=== PATIENT | male | born 1965 | race Caucasian/White ===

== ENCOUNTER 2017-03-25 10:49 | Inpatient (IN) | payer OTHER ==
[~2017-03-25] VITALS: Ht 157.5 cm; Wt 120.7 kg
[2017-03-25 10:54] VITALS: Ht 157.5 cm; Wt 120.7 kg
[2017-03-25] MEDS ORDERED: ONDANSETRON 4 MG INJ IV STA ×2 (11:39→14:12)
[2017-03-25] MEDS ORDERED: HYDROmorphONE 1 MG/ML SYG IV STA ×2 (11:39→14:12)
[2017-03-25 11:55] LABS: BASOPHIL # 0.1 10^3/ul (0.0-0.1); BASOPHILS % 0.8 % (0.0-2.0); EOSINOPHILS # 0.3 10^3/ul (0.0-0.5); EOSINOPHILS % 4.5 % (0.0-7.0); HEMATOCRIT 47.5 % (42.0-52.0); HEMOGLOBIN 16.3 g/dl (14.0-18.0); LYMPHOCYTES # 0.8 10^3/ul (0.8-2.9); LYMPHOCYTES % 13.2 % (15.0-51.0); MEAN CORPUSCULAR HEMOGLOBIN 29.8 pg (29.0-33.0); MEAN CORPUSCULAR HGB CONC 34.3 g/dl (32.0-37.0); MEAN CORPUSCULAR VOLUME 86.8 fl (82.0-101.0); MONOCYTE # 0.6 10^3/ul (0.3-0.9); MONOCYTES % 9.4 % (0.0-11.0); NEUTROPHIL # 4.3 10^3/ul (1.6-7.5); NEUTROPHILS % 71.8 % (39.0-77.0); PLATELET COUNT 275 10^3/UL (140-415); RED BLOOD COUNT 5.47 10^6/ul (4.70-6.10); RED CELL DISTRIBUTION WIDTH 12.6 % (11.5-14.5)
[2017-03-25] MEDS ORDERED: ERTAPENEM SODIUM 1 GM in SOD CHLORIDE 0.9% 100 ML IVPB ONE (12:00)
[2017-03-25 12:19] LABS: ALBUMIN 4.5 g/dl (3.3-4.9); ALBUMIN/GLOBULIN RATIO 1.12; BILIRUBIN,INDIRECT 0.2 mg/dl (0-1.1); BILIRUBIN,TOTAL 0.2 mg/dl (0.2-1.3); CALCIUM 9.4 mg/dl (8.4-10.2); CREATININE 0.83 mg/dl (0.61-1.24); POTASSIUM 3.9 mmol/L (3.5-5.1); TOTAL PROTEIN 8.5 g/dl (6.1-8.1)
[2017-03-25] MEDS ORDERED: IOHEXOL 300MG/ML 150 ML BTL ONE (13:21)
[2017-03-25] MEDS ORDERED: SOD CHLORIDE 0.9% 100 ML ONE (13:21)
--- NOTE | 2017-03-25 13:24 | ERA ---
ER Documentation Chief Complaint Date/Time DATE: 03/25/17 TIME: 13:22 Chief Complaint right abcess/ mass? x 3 mos HPI This a 51-year-old diabetic who states he has had a right past 3 months. He says started out like the size of a dime but is progressively gotten worse. She is now has an open circular wound in his right buttocks is getting more swollen and painful. Denies any fever vomiting difficulty having a bowel movement no shortness of breath vomiting GI symptoms. ROS All systems reviewed and are negative except as per history of present illness. Medications Home Meds No Active Prescriptions or Reported Meds Allergies Allergies: Coded Allergies: No Known Allergy (Unverified , 03/25/17) PMhx/Soc Medical and Surgical Hx: pt denies Medical Hx, pt denies Surgical Hx Hx Alcohol Use: No Hx Substance Use: No Hx Tobacco Use: No Smoking Status: Never smoker FmHx Family History: No coronary disease Physical Exam Vitals Vital Signs Date Time Temp Pulse Resp B/P Pulse Ox O2 Delivery O2 Flow Rate FiO2 03/25/17 10:54 98.3 99 18 203/117 99 Physical Exam Const: Well-developed, well-nourished Head: Atraumatic, normocephalic Eyes: Normal Conjunctiva, PERRLA, EOMI, normal sclera, no nystagmus ENT: Normal External Ears, Nose and Mouth, moist mucus membranes. Neck: Full range of motion. No meningismus, no lymphadenopathy. Resp: Clear to auscultation bilaterally, no wheezing, rhonchi, rales Cardio: Regular rate and rhythm, no murmurs, S1 S2 present Abd: Soft, non tender x 4, non distended. Normal bowel sounds, no guarding or rebound, no pulsitile abdominal masses or bruits Skin: No petechiae or rashes, no ecchymosis , no maculopapular rash, the right buttocks has a granulated tissue circular appearing woman with a central area of necrosis approximately 5-6 cm in diameter. Surrounding tissue is very firm and hard in the buttocks. Back: No midline or flank tenderness Ext: No cyanosis, or edema, FROM x 4, normal inspection, neurovascularly intact x 4 Neur: Awake and alert, STR 5/5 x 4, sensation intact x 4, no focal findings, cerebellum intact Psych: Normal Mood and Affect Result Diagram: 03/25/17 1140 03/25/17 1140 Results 24 hrs Laboratory Tests Test 03/25/17 11:40 White Blood Count 6.010^3/ul Red Blood Count 5.4710^6/ul Hemoglobin 16.3g/dl Hematocrit 47.5% Mean Corpuscular Volume 86.8fl Mean Corpuscular Hemoglobin 29.8pg Mean Corpuscular Hemoglobin Concent 34.3g/dl Red Cell Distribution Width 12.6% Platelet Count 35310^3/UL Mean Platelet Volume 9.0fl Neutrophils % 71.8% Lymphocytes % 13.2% Monocytes % 9.4% Eosinophils % 4.5% Basophils % 0.8% Nucleated Red Blood Cells % 0.0/100WBC Neutrophils # 4.310^3/ul Lymphocytes # 0.810^3/ul Monocytes # 0.610^3/ul Eosinophils # 0.310^3/ul Basophils # 0.110^3/ul Nucleated Red Blood Cells # 0.010^3/ul Sodium Level 141mmol/L Potassium Level 3.9mmol/L Chloride Level 106mmol/L Carbon Dioxide Level 24mmol/L Anion Gap 15 Blood Urea Nitrogen 12mg/dl Creatinine 0.83mg/dl Glucose Level 179mg/dl Calcium Level 9.4mg/dl Total Bilirubin 0.2mg/dl Direct Bilirubin 0.00mg/dl Indirect Bilirubin 0.2mg/dl Aspartate Amino Transf (AST/SGOT) 32IU/L Alanine Aminotransferase (ALT/SGPT) 51IU/L Alkaline Phosphatase 140IU/L Total Protein 8.5g/dl Albumin 4.5g/dl Globulin 4.00g/dl Albumin/Globulin Ratio 1.12 Current Medications Medications (Trade) Dose Ordered Sig/Amol Route PRN Reason Start Time Stop Time Status Last Admin Dose Admin Hydromorphone HCl (Dilaudid) 1 mg ONCE STAT IV 03/25/17 11:39 03/25/17 11:42 DC 03/25/17 12:09 Ondansetron HCl 4 mg 4 mg ONCE STAT IV 03/25/17 11:39 03/25/17 11:42 DC 03/25/17 12:09 Ertapenem/Sodium Chloride (Invanz/NS) 100 ml @ 200 mls/hr ONCE ONCE IVPB 03/25/17 12:00 03/25/17 12:29 DC 03/25/17 12:09 Iohexol 150 ml 150 ml STK-MED ONCE .ROUTE 03/25/17 13:21 03/25/17 13:22 DC 03/25/17 13:44 Sodium Chloride (NS) 100 ml @ ud STK-MED ONCE .ROUTE 03/25/17 13:21 03/25/17 13:22 DC 03/25/17 13:44 Hydromorphone HCl (Dilaudid) 1 mg ONCE STAT IV 03/25/17 14:12 03/25/17 14:13 DC Ondansetron HCl (Zofran Inj) 4 mg ONCE STAT IV 03/25/17 14:12 03/25/17 14:13 DC Procedures/[facility] Patient will be admitted for IV antibiotics and wound care. CT scan of the buttocks is currently pending, he received some IV fluids and 1 g of Invanz in the emergency department. PROCEDURE: CT pelvis with contrast. CLINICAL INDICATION: Left buttock abscess TECHNIQUE: CT scan of the pelvis after 90 cc of Omnipaque-300 IV contrast was performed. The patient was scanned without intravenous contrast. Coronal and sagittal reformatted images were obtained from the axial source images. Use of iterative reconstruction technique was employed. Images were reviewed on a high- resolution PACS workstation. images. The calculated radiation dose measures 685.86 mGy centimeters. The CTDI measures 16.72 mGy. One or more of the following dose reduction techniques were used: - Automated exposure control. - Adjustment of the mA and/or kV according to patient size . - Use of iterative reconstruction technique. Images were reviewed on a high-resolution PACS workstation COMPARISON: None. FINDINGS: CT pelvis: Osseous structures: There is no acute osseous abnormality or evidence of fracture. No cortical destruction or soft tissue gas is seen to suggest osteomyelitis. The hip joints and lower lumbar spine are grossly maintained. Mild to moderate symphysis pubis degeneration. Soft tissues: The small bowel loops situated within the pelvis are unremarkable. The pelvic organs are normal. The pelvic sidewalls and inguinal regions are clear. The sigmoid colon and rectum are remarkable for sigmoid diverticulosis. No mass, lymphadenopathy, or free fluid is seen. No acute inflammation is seen. Mild nonspecific increased attenuation is seen at the left gluteus arianna muscle without evidence of a drainable fluid collection. IMPRESSION: 1. No CT evidence of a drainable fluid collection. 2. No acute osseous abnormality or findings to suggest osteomyelitis. RPTAT: HH .Keven Perez MD, MD Date Time Electronically viewed and signed by .Keven Perez MD, MD on 03/25/2017 13:50 .d/ CC: MIESHA ARREAGA DO There is no drainable fluid collection or need for surgical intervention at this time. Patient needs IV antibiotics and wound care at this time Departure Diagnosis: Primary Impression: Soft tissue infection Additional Impression: Open wound Condition: Stable MIESHA ARREAGA DO Mar 25, 2017 13:24
--- NOTE | 2017-03-25 13:51 | RADRPT ---
PROCEDURE: CT pelvis with contrast. CLINICAL INDICATION: Left buttock abscess TECHNIQUE: CT scan of the pelvis after 90 cc of Omnipaque-300 IV contrast was performed. The paulette ent was scanned without intravenous contrast. Coronal and sagittal reformatted images were obtained from the axial source images. Use of iterative reconstruction technique was employed. Images were r eviewed on a high-resolution PACS workstation. images. The calculated radiation dose measures 685.86 mGy centimeters. The CTDI measures 16.72 mGy. One or more of the following dose reduction techniques were used: - Automated exposure control. - Adjustment of the mA and/or kV according to patient size . - Use of iterative reconstruction technique. Images were reviewed on a high-resolution PACS workstation COMPARISON: None. FINDINGS: CT pelvis: Osseous structures: There is no acute osseous abnormality or evidence of fracture. No cortical destruction or soft tissu e gas is seen to suggest osteomyelitis. The hip joints and lower lumbar spine are grossly maintained . Mild to moderate symphysis pubis degeneration. Soft tissues: The small bowel loops situated within the pelvis are unremarkable. The pelvic organs are normal. T he pelvic sidewalls and inguinal regions are clear. The sigmoid colon and rectum are remarkable for sigmoid diverticulosis. No mass, lymphadenopathy, or free fluid is seen. No acute inflammation is seen. Mild nonspecific increased attenuation is seen at the left gluteus arianna muscle without ev idence of a drainable fluid collection. IMPRESSION: 1. No CT evidence of a drainable fluid collection. 2. No acute osseous abnormality or findings to suggest osteomyelitis. RPTAT: HH .Keven Perez MD, MD Date Time Electronically viewed and signed by .Keven Perez MD, MD on 03/25/2017 13:50 .d/
[2017-03-25] MEDS ORDERED: ACETAMINOPHEN 325 MG TAB PO PRN ×2 (15:30→17:30)
[2017-03-25] MEDS ORDERED: ONDANSETRON 4 MG INJ IV PRN ×2 (15:30→17:30)
--- NOTE | 2017-03-25 17:29 | QN ---
Documentation Comment [id number] KAL HENDRIX MD Mar 25, 2017 17:29
[2017-03-25] MEDS ORDERED: MAGNESIUM HYDROXIDE 30ML CUP PO PRN (17:30)
[2017-03-25] MEDS ORDERED: DOCUSATE SODIUM 100 MG CAP PO PRN (17:30)
[2017-03-25] MEDS ORDERED: VANCOMYCIN IV PER PHARMACY XX SCH (17:30)
[2017-03-25] MEDS ORDERED: NACL 0.9% 3 ML SYG IV SCH (17:30)
[2017-03-25] MEDS ORDERED: BISACODYL (EC) 5 MG TAB PO PRN (17:30)
[2017-03-25 17:58] VITALS: TEMP 98.5
[2017-03-25] MEDS ORDERED: hydrALAzine 20 MG INJ IV PRN (18:00)
[2017-03-25] MEDS ORDERED: VANCOMYCIN 1.75 GM in SOD CHLORIDE 0.9% 500 ML IVPB ONE (18:30)
[2017-03-25] MEDS: HYDROCODONE/APAP (5/325) TAB PO PRN ×2 (18:41→20:08)
[2017-03-25] MEDS: SOD CHLORIDE 0.9% 1,000 ML IV SCH (20:07)
[2017-03-25 21:30] VITALS: BP 137/84; RESP 19
[2017-03-25 22:36] VITALS: BP 132/90; PULSE 89; RESP 19
[2017-03-26 02:19] VITALS: BP 132/73; RESP 18
[2017-03-26] MEDS: HYDROCODONE/APAP (5/325) TAB PO PRN ×2 (02:39→09:13)
--- NOTE | 2017-03-26 02:46 | HP ---
DATE OF ADMISSION: 03/25/2017 HISTORY OF PRESENT ILLNESS: Mark Mckeon is a 51-year-old male who has a history of diabetes, but he denies any diabetes, hypertension. Patient presents with buttock wound, chronic, not healing. 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 The patient also has been gaining weight. Patient's laboratory , sodium 141, potassium 3.9. Patient had pelvic CT scan, shows no CT evidence of a drainable fluid collection, no acute osseous abnormality or finding to suggest osteomyelitis. The patient presented with above findings. PAST MEDICAL HISTORY: Questionable diabetes. ALLERGY HISTORY: HE DENIES. FAMILY HISTORY: Denies. SOCIAL HISTORY: He denies. MEDICATION HISTORY: No medicine at home. REVIEW OF SYSTEMS: HEENT: Unremarkable. RESPIRATORY: Unremarkable. CARDIOVASCULAR: Unremarkable. ABDOMEN: Unremarkable. EXTREMITIES: Unremarkable. GENITOURINARY: Unremarkable. MUSCULOSKELETAL: Unremarkable. SKIN: As mentioned above. PHYSICAL EXAMINATION: GENERAL: Obese, overweight male, awake, alert. VITALS: Stable. HEAD: Atraumatic, normocephalic. Pupils equal, reactive to light. NECK: Supple, there is no JVD. LUNGS: Clear. CARDIOVASCULAR: S1, S2 normal. ABDOMEN: Soft, nontender. Bowel sounds present. No palpable mass or hepatosplenomegaly. EXTREMITIES: There is no cyanosis, clubbing or edema. CENTRAL NERVOUS SYSTEM: The patient is awake, alert, no focal deficits. SKIN: The patient has had buttock cheek right swollen, tender, red, dry, no discharge noted. LABORATORY DATA: As mentioned above. IMPRESSION: 1. The patient has buttock wound. 2. Hypertension, uncontrolled. 3. Obesity. PLAN: Obtain hemoglobin A1c. IV fluid, antibiotic, wound care. Hemoglobin A1c will be checked. Antibiotics will be given, as well as orders were done. Dictated By: KAL BAUGH/BRIAN Conf#: [id number] DID#: [id number] MTDD
[2017-03-26] MEDS ORDERED: PENDING SANTYL ORDER FOR WOUND CARE XX PRN (04:00)
[2017-03-26] MEDS: PANTOPRAZOLE (EC) 40 MG TAB PO SCH (05:39)
[2017-03-26] MEDS ORDERED: VANCOMYCIN 1 GM in NS 250 ML IVPB SCH (06:30)
[2017-03-26 07:46] VITALS: BP 140/82; RESP 16
[2017-03-26] MEDS: ENOXAPARIN 40 MG/0.4 ML SYG SC SCH (09:19)
[2017-03-26] MEDS: CEFTRIAXONE 1 GM/50 ML (PMX) 50 ML IVPB SCH (11:06)
[2017-03-26] MEDS: morphine 2 MG INJ IV PRN (13:10)
[2017-03-26 14:11] VITALS: BP 132/72; RESP 20
--- NOTE | 2017-03-26 14:19 | CONS ---
Date/Time of Note Date/Time of Note DATE: 03/26/17 TIME: 13:51 Assessment/Plan Assessment/Plan Chief Complaint/Hosp Course 1. Nonhealing right buttock wound with necrotic tissue: complicated by diabetes : CT without fluid collection -debridement -local wound care -wound culture 2. Diabetes: HgA1c: 6.7 -blood sugar optimization -medication and diet optimization -weight management 3. Morbid obesity -diet and exercise optimization 4. Hypertension -medical optimization Thank you. Patient seen and examined in collaboration with Dr. Alexx Shea. Problems: Consultation Date/Type/Reason Admit Date/Time Mar 25, 2017 at 15:47 Date of Consultation: Mar 26, 2017 Type of Consultation: Surgical Reason for Consultation wound Referring Provider: KAL HENDRIX Hx of Present Illness Makr Mckeon is a 51 yo man who presents to [facility] with c/o a nonhealing wound on his right buttock. The wound reportedly began 3 months ago after using a public bathroom, he scratched his buttock which resulted in a wound. The wound has min creamy drainage. He denies fevers, chills, excessive wound drainage/odor , myalgias, change in bowel function or ability to defecate. Therapies attempted include over-the counter ointments as well as ointment obtained by a family member from the hospital where she works. Despite these, his wound has gotten worse. General surgery was asked to evaluate. Constitutional: No chills, No febrile Eyes: No discharge, No visual change ENT: No congestion, No pain Respiratory: No cough, No pain, No shortness of breath Cardiovascular: No chest pain, No edema Gastrointestinal: passing stool, No blood, No constipation, No nausea, No pain Genitourinary: No dysuria Skin: other (as above), No bruising, No erythema Neurologic: No confusion, No focal-weakness Endocrine: No polydypsia Psychological: nl mood/affect Past Medical History hypertension diabetes (unknown to patient) morbid obesity Past Surgical History no surgical history Family History Significant Family History: no pertinent family hx Social History Alcohol Use: occasionally Smoking Status: Never smoker Drug Use: none Exam/Review of Systems Vital Signs Vitals Vital Signs Date Time Temp Pulse Resp B/P Pulse Ox O2 Delivery O2 Flow Rate FiO2 03/26/17 07:46 97.9 86 16 140/82 98 03/25/17 22:36 Room Air Intake and Output 03/25/17 03/25/17 03/26/17 15:00 23:00 07:00 Intake Total 950 ml Balance 950 ml Exam Constitutional: alert, oriented Psych: nl mood/affect, no complaints Head: atraumatic, normocephalic Eyes: nl conjunctiva, nl lids, nl sclera ENMT: mucosa pink and moist, nl nasal mucosa & septum Neck: non-tender, supple Respiratory: clear to auscultation, normal air movement Cardiovascular: nl pulses, regular rate and rhythm Gastrointestinal: bowel sounds, non-tender, soft Musculoskeletal: nl extremities to inspection, nl gait and stance Extremities: normal pulses Neurological: nl mental status, nl speech, nl strength Skin: other (Right buttock: open wound with necrotic tissue, debris min drainage, nonmalodorous) Results Result Diagram: 03/25/17 1140 03/25/17 1140 Medications Medications Current Medications Sodium Chloride (NS) 1,000 ml @ 40 mls/hr Q24H IV Last administered on 20:07; Admin Dose 40 MLS/HR; Start 03/25/17 at 17:07 Ondansetron HCl (Zofran Inj) 4 mg Q6H PRN IV NAUSEA AND/OR VOMITING; Start 04/01 at 17:30 Acetaminophen (Tylenol Tab) 650 mg Q6H PRN PO PAIN LEVEL 1-3 OR FEVER; Start 03/25/17 at 17:30 Acetaminophen/ Hydrocodone Bitart ([place] (5/325)) 1 tab Q6H PRN PO MODERATE PAIN LEVEL 4-6 Last administered on 03/26/17 09:13; Admin Dose 1 TAB; Start 03/25/17 at 17:30 Docusate Sodium (Colace) 100 mg Q12H PRN PO CONSTIPATION; Start 03/25/17 at 17 :30 Magnesium Hydroxide (Milk Of Mag) 30 ml DAILY PRN PO CONSTIPATION; Start 03/25 at 17:30 Bisacodyl (Dulcolax) 5 mg DAILY PRN PO CONSTIPATION; Start 03/25/17 at 17:30 Pantoprazole (Protonix Tab) 40 mg DAILY@06 PO Last administered on 03/26/17 05:39; Admin Dose 40 MG; Start 03/26/17 at 06:00 Enoxaparin Sodium 40 mg 40 mg DAILY SC Last administered on 03/26/17 09:19; Admin Dose 40 MG; Start 03/26/17 at 09:00 Ceftriaxone Sodium (Rocephin) 50 ml @ 100 mls/hr DAILY IVPB Last administered on 03/26/17 11:06; Admin Dose 100 MLS/HR; Start 03/26/17 at 09:00 Clonidine (Catapres) 0.1 mg TID PO Last administered on 03/26/17 13:11; Admin Dose 0.1 MG; Start 03/25/17 at 21:00 Hydralazine HCl 10 mg 10 mg Q6H PRN IV SBP ABOVE 170; Start 03/25/17 at 18:00 Vancomycin HCl (Vancocin) 250 ml @ 125 mls/hr Q12H IVPB Last administered on 03/26/17 07:53; Admin Dose 125 MLS/HR; Start 03/26/17 at 06:30 Miscellaneous Information (Pending [facility] Order For Wound Care) This patient lópez... PRN PRN XX WOUND CARE; Start 03/26/17 at 04:00 Morphine Sulfate (morphine) 2 mg Q4H PRN IV pain Last administered on 13:10; Admin Dose 2 MG; Start 03/26/17 at 12:30 Sodium Hypochlorite ([place] (1/4 Strength)) 1 applic BID IRR ; Start 03/26/17 at 21:00 MICHAEL POTTS NP Mar 26, 2017 14:01
[2017-03-26] MEDS ORDERED: LIDOCAINE 2%/EPI MPF (SDV) 20 ML VIAL INJ ONE (14:30)
[2017-03-26] MEDS ORDERED: SILVER NITRATE SWAB TOP ONE (14:30)
--- NOTE | 2017-03-26 15:35 | OPR ---
Date/Time of Note Date/Time of Note DATE: 03/26/17 TIME: 15:28 Operative Report Procedure Date: Mar 26, 2017 Preoperative Diagnosis Right buttock wound with necrotic tissue Postoperative Diagnosis Right buttock wound 5.4 x 3.5cm Operation/Procedure Performed Excisional debridement of right buttock wound Surgeon see signature line Elevator Service Technician none Anesthesia Type: other (local) Estimated Blood Loss: minimal Transfusion none Specimen none Grafts/Implants none Complications none Pt Condition Post Procedure: stable Indications per notes Procedure Description r/b/a reviewed and fully agreed upon with patient. Patient positioned prone on his bed. pressure points padded. Area prepped in sterile manner. Time out performed. Using a scalpel and curette, the necrotic tissue and slough of the right buttock skin and subcutaneous tissue was debrided to healthier edges. Wound was irrigated and packed. Abd pad to cover. MICHAEL POTTS NP Mar 26, 2017 15:35
[2017-03-26] MEDS: SOD CHLORIDE 0.9% 1,000 ML IV SCH ×2 (17:07→20:30)
--- NOTE | 2017-03-26 20:17 | PN ---
Date/Time of Note Date/Time of Note DATE: 03/26/17 TIME: 20:16 Assessment/Plan VTE Prophylaxis VTE Prophylaxis Intervention: other Lines/Catheters IV Catheter Type (from Nrsg): Peripheral IV Assessment/Plan Chief Complaint/Hosp Course IMPRESSION: 1. The patient has buttock wound. 2. Hypertension, uncontrolled. 3. Obesity. 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 Problems: Subjective 24 Hr Interval Summary Respiratory: no complaints Cardiovascular: no complaints Gastrointestinal: no complaints Exam/Review of Systems Vital Signs Vitals Vital Signs Date Time Temp Pulse Resp B/P Pulse Ox O2 Delivery O2 Flow Rate FiO2 03/26/17 14:11 98.5 88 20 132/72 96 03/25/17 22:36 Room Air Intake and Output 03/25/17 03/25/17 03/26/17 15:00 23:00 07:00 Intake Total 950 ml Balance 950 ml Exam Neck: supple Respiratory: clear to auscultation Cardiovascular: regular rate and rhythm Gastrointestinal: bowel sounds (+), soft Extremities: No edema Results Result Diagram: 03/25/17 1140 03/25/17 1140 Medications Medications Current Medications Sodium Chloride (NS) 1,000 ml @ 40 mls/hr Q24H IV Last administered on t 20:07; Admin Dose 40 MLS/HR; Start 03/25/17 at 17:07 Ondansetron HCl (Zofran Inj) 4 mg Q6H PRN IV NAUSEA AND/OR VOMITING; Start 04/01 at 17:30 Acetaminophen (Tylenol Tab) 650 mg Q6H PRN PO PAIN LEVEL 1-3 OR FEVER; Start 03/25/17 at 17:30 Acetaminophen/ Hydrocodone Bitart ([place] (5/325)) 1 tab Q6H PRN PO MODERATE PAIN LEVEL 4-6 Last administered on 03/26/17t 09:13; Admin Dose 1 TAB; Start 03/25/17 at 17:30 Docusate Sodium (Colace) 100 mg Q12H PRN PO CONSTIPATION; Start 03/25/17 at 17 :30 Magnesium Hydroxide (Milk Of Mag) 30 ml DAILY PRN PO CONSTIPATION; Start 03/25 at 17:30 Bisacodyl (Dulcolax) 5 mg DAILY PRN PO CONSTIPATION; Start 03/25/17 at 17:30 Pantoprazole (Protonix Tab) 40 mg DAILY@06 PO Last administered on 03/26/17 05:39; Admin Dose 40 MG; Start 03/26/17 at 06:00 Enoxaparin Sodium 40 mg 40 mg DAILY SC Last administered on 03/26/17 09:19; Admin Dose 40 MG; Start 03/26/17 at 09:00 Ceftriaxone Sodium (Rocephin) 50 ml @ 100 mls/hr DAILY IVPB Last administered on 03/26/17 11:06; Admin Dose 100 MLS/HR; Start 03/26/17 at 09:00 Clonidine (Catapres) 0.1 mg TID PO Last administered on 03/26/17 13:11; Admin Dose 0.1 MG; Start 03/25/17 at 21:00 Hydralazine HCl (Apresoline) 10 mg Q6H PRN IV SBP ABOVE 170; Start 03/25/17 at 18:00 Miscellaneous Information (Pending [facility] Order For Wound Care) This patient lópez... PRN PRN XX WOUND CARE; Start 03/26/17 at 04:00 Morphine Sulfate (morphine) 2 mg Q4H PRN IV pain Last administered on 13:10; Admin Dose 2 MG; Start 03/26/17 at 12:30 Sodium Hypochlorite 1 applic 1 applic BID IRR ; Start 03/26/17 at 21:00 Vancomycin HCl/ Sodium Chloride (Vancocin/NS) 250 ml @ 83.333 mls/ hr Q12H IVPB ; Start 03/26/17 at 20:00 KAL HENDRIX MD Mar 26, 2017 20:17
[2017-03-26] MEDS: VANCOMYCIN 1.25 GM in SOD CHLORIDE 0.9% 250 ML IVPB SCH (20:30)
[2017-03-26 20:39] VITALS: BP 116/71; RESP 16
[2017-03-26] MEDS: SODIUM HYPOCHLORITE 0.125% 473 ML BTL IRR SCH (21:00)
[2017-03-26] MEDS ORDERED: GLUCOSE GEL 15 GRAM TUBE PO PRN ×2 (21:30)
[2017-03-26] MEDS ORDERED: GLUCAGON 1 MG INJ IM PRN (21:30)
[2017-03-26] MEDS ORDERED: DEXTROSE 50% 50 ML SYRINGE IV PRN ×2 (21:30)
[2017-03-26] MEDS ORDERED: GLUCOSE GEL 15 GRAM TUBE BUCCAL PRN (21:30)
[2017-03-26] MEDS: INSULIN ASPART [NOVOLOG] 3 ML PEN SC SCH (22:55)
[2017-03-27] MEDS: HYDROCODONE/APAP (5/325) TAB PO PRN ×3 (00:13→20:43)
[2017-03-27] MEDS: morphine 2 MG INJ IV PRN ×5 (01:56→23:28)
[2017-03-27] MEDS ORDERED: ACCU-CHEK XX SCH (02:00)
[2017-03-27] MEDS: ACCU-CHEK XX SCH ×2 (02:00→20:39)
[2017-03-27 02:39] VITALS: BP 134/78; RESP 16
[2017-03-27] MEDS: PANTOPRAZOLE (EC) 40 MG TAB PO SCH (05:28)
[2017-03-27 06:19] LABS: CREATININE 0.92 mg/dl (0.61-1.24)
[2017-03-27 07:29] VITALS: BP 149/89; RESP 20
[2017-03-27] MEDS: INSULIN ASPART [NOVOLOG] 3 ML PEN SC SCH ×4 (08:00→20:39)
[2017-03-27] MEDS: VANCOMYCIN 1.25 GM in SOD CHLORIDE 0.9% 250 ML IVPB SCH ×2 (08:23→20:44)
[2017-03-27] MEDS: metFORMIN 500 MG TAB PO SCH ×2 (08:26→17:32)
[2017-03-27] MEDS: ENOXAPARIN 40 MG/0.4 ML SYG SC SCH (08:34)
[2017-03-27] MEDS: CEFTRIAXONE 1 GM/50 ML (PMX) 50 ML IVPB SCH (08:35)
[2017-03-27] MEDS: SODIUM HYPOCHLORITE 0.125% 473 ML BTL IRR SCH ×2 (09:00→17:58)
--- NOTE | 2017-03-27 16:16 | PN ---
Date/Time of Note Date/Time of Note DATE: 03/27/17 TIME: 16:12 Assessment/Plan Lines/Catheters IV C[facility]ter Type (from [facility]): Saline Lock Assessment/Plan Chief Complaint/Hosp Course 1. Nonhealing right buttock wound with necrotic tissue: complicated by diabetes : CT without fluid collection: s/p debridement -debridement prn -local wound care -follow wound culture -patient may be discharged per medical team with wound care for home- ?wound care clinic 2. Diabetes: HgA1c: 6.7 -blood sugar optimization -medication and diet optimization -weight management 3. Morbid obesity -diet and exercise optimization 4. Hypertension -medical optimization Thank you. Patient seen and examined in collaboration with Dr. Alexx Shea. Problems: Subjective 24 Hr Interval Summary Wound mod drainage. Min pain/tenderness-improved with medications. No fevers, chills, excessive wound drainage/odor, n/v/d/dysuria, change in bowel pattern or ability to defecate. Exam/Review of Systems Vital Signs Vitals Vital Signs Date Time Temp Pulse Resp B/P Pulse Ox O2 Delivery O2 Flow Rate FiO2 03/27/17 07:29 97.7 80 20 149/89 96 03/25/17 22:36 Room Air Intake and Output 03/26/17 03/26/17 03/27/17 14:59 22:59 06:59 Intake Total 980 ml 1290 ml Balance 980 ml 1290 ml Exam Free Text/Dictation Constitutional: alert, oriented Psych: nl mood/affect, no complaints Head: atraumatic, normocephalic Eyes: nl conjunctiva, nl lids, nl sclera ENMT: mucosa pink and moist, nl nasal mucosa & septum Neck: non-tender, supple Respiratory: clear to auscultation, normal air movement Cardiovascular: nl pulses, regular rate and rhythm Gastrointestinal: bowel sounds, non-tender, soft Musculoskeletal: nl extremities to inspection, nl gait and stance Extremities: normal pulses Neurological: nl mental status, nl speech, nl strength Skin: other (Right buttock: packed, mod drainage, nonmalodorous) Results Result Diagram: 03/25/17 1140 03/27/17 0503 MICHAEL POTTS NP Mar 27, 2017 16:16
[2017-03-27 16:55] VITALS: BP 125/71; RESP 18
--- NOTE | 2017-03-27 18:01 | PN ---
Date/Time of Note Date/Time of Note DATE: 03/27/17 TIME: 18:01 Assessment/Plan VTE Prophylaxis VTE Prophylaxis Intervention: other Lines/Catheters IV Catheter Type (from Nrsg): [place] Assessment/Plan Chief Complaint/Hosp Course IMPRESSION: 1. The patient has buttock wound. 2. Hypertension, uncontrolled. 3. Obesity. 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 WOUND CARE Problems: Subjective 24 Hr Interval Summary Subjective hx not possible: other (BUTTOCK WOUND+) Exam/Review of Systems Vital Signs Vitals Vital Signs Date Time Temp Pulse Resp B/P Pulse Ox O2 Delivery O2 Flow Rate FiO2 03/27/17 16:55 98.3 76 18 125/71 96 03/25/17 22:36 Room Air Intake and Output 03/26/17 03/26/17 03/27/17 15:00 23:00 07:00 Intake Total 980 ml 1290 ml Balance 980 ml 1290 ml Exam Respiratory: clear to auscultation Cardiovascular: regular rate and rhythm Gastrointestinal: soft Musculoskeletal: nl extremities to inspection Extremities: normal pulses Results Result Diagram: 03/25/17 1140 03/27/17 0503 Results 24 hrs Laboratory Tests Test 03/26/17 22:14 03/27/17 05:03 03/27/17 08:25 03/27/17 12:31 Bedside Glucose 92 114 102 Blood Urea Nitrogen 15 Creatinine 0.92 Test 03/27/17 17:31 Bedside Glucose 114 Medications Medications Current Medications Sodium Chloride (NS) 1,000 ml @ 40 mls/hr Q24H IV Last administered on 20:30; Admin Dose 40 MLS/HR; Start 03/25/17 at 17:07 Ondansetron HCl (Zofran Inj) 4 mg Q6H PRN IV NAUSEA AND/OR VOMITING; Start 04/01 at 17:30 Acetaminophen (Tylenol Tab) 650 mg Q6H PRN PO PAIN LEVEL 1-3 OR FEVER; Start 03/25/17 at 17:30 Acetaminophen/ Hydrocodone Bitart ([place] (5/325)) 1 tab Q6H PRN PO MODERATE PAIN LEVEL 4-6 Last administered on 03/27/17 08:28; Admin Dose 1 TAB; Start 03/25/17 at 17:30 Docusate Sodium (Colace) 100 mg Q12H PRN PO CONSTIPATION; Start 03/25/17 at 17 :30 Magnesium Hydroxide (Milk Of Mag) 30 ml DAILY PRN PO CONSTIPATION; Start 03/25 at 17:30 Bisacodyl (Dulcolax) 5 mg DAILY PRN PO CONSTIPATION; Start 03/25/17 at 17:30 Pantoprazole (Protonix Tab) 40 mg DAILY@06 PO Last administered on 03/27/17 05:28; Admin Dose 40 MG; Start 03/26/17 at 06:00 Enoxaparin Sodium 40 mg 40 mg DAILY SC Last administered on 03/27/17 08:34; Admin Dose 40 MG; Start 03/26/17 at 09:00 Ceftriaxone Sodium (Rocephin) 50 ml @ 100 mls/hr DAILY IVPB Last administered on 03/27/17 08:35; Admin Dose 100 MLS/HR; Start 03/26/17 at 09:00 Clonidine (Catapres) 0.1 mg TID PO Last administered on 03/27/17 14:01; Admin Dose 0.1 MG; Start 03/25/17 at 21:00 Hydralazine HCl (Apresoline) 10 mg Q6H PRN IV SBP ABOVE 170; Start 03/25/17 at 18:00 Miscellaneous Information (Pending [facility] Order For Wound Care) This patient lópez... PRN PRN XX WOUND CARE; Start 03/26/17 at 04:00 Morphine Sulfate (morphine) 2 mg Q4H PRN IV pain Last administered on 12:41; Admin Dose 2 MG; Start 03/26/17 at 12:30 Sodium Hypochlorite 1 applic 1 applic BID IRR Last administered on 03/27/17 17:58; Admin Dose 1 APPLIC; Start 03/26/17 at 21:00 Vancomycin HCl/ Sodium Chloride (Vancocin/NS) 250 ml @ 83.333 mls/ hr Q12H IVPB Last administered on 03/27/17 08:23; Admin Dose 83.333 MLS/HR; Start at 20:00 Diagnostic Test (Pha) (Accu-Chek) 1 ea 02 XX ; Start 03/27/17 at 02:00 Miscellaneous Information 1 ea NOTE XX ; Start 03/26/17 at 21:30 Glucose (Glutose) 15 gm Q15M PRN PO DECREASED GLUCOSE; Start 03/26/17 at 21:30 Glucose (Glutose) 22.5 gm Q15M PRN PO DECREASED GLUCOSE; Start 03/26/17 at 21: 30 Dextrose (D50w Syringe) 25 ml Q15M PRN IV DECREASED GLUCOSE; Start 03/26/17 at 21:30 Dextrose (D50w Syringe) 50 ml Q15M PRN IV DECREASED GLUCOSE; Start 03/26/17 at 21:30 Glucagon (Glucagen) 1 mg Q15M PRN IM DECREASED GLUCOSE; Start 03/26/17 at 21: 30 Glucose (Glutose) 15 gm Q15M PRN BUCCAL DECREASED GLUCOSE; Start 03/26/17 at 21:30 Miscellaneous Information (*Rx Drug Level Order Reminder*) VANCO TROUGH @ 1, 900 ON ... ONCE ONCE XX ; Start 03/27/17 at 19:00; Stop 03/27/17 at 19:01 KAL HENDRIX MD Mar 27, 2017 18:01
[2017-03-27 21:55] VITALS: BP 145/86; RESP 18
[2017-03-28 03:05] VITALS: BP 117/70; RESP 18
[2017-03-28] MEDS: morphine 2 MG INJ IV PRN ×3 (05:06→21:30)
[2017-03-28] MEDS: PANTOPRAZOLE (EC) 40 MG TAB PO SCH (05:06)
[2017-03-28] MEDS: SOD CHLORIDE 0.9% 1,000 ML IV SCH (05:07)
[2017-03-28] MEDS: INSULIN ASPART [NOVOLOG] 3 ML PEN SC SCH ×4 (08:00→21:00)
[2017-03-28] MEDS: metFORMIN 500 MG TAB PO SCH ×2 (08:15→17:57)
[2017-03-28 08:18] VITALS: BP 144/88; RESP 16
[2017-03-28] MEDS: ENOXAPARIN 40 MG/0.4 ML SYG SC SCH (08:22)
[2017-03-28] MEDS: VANCOMYCIN 1.25 GM in SOD CHLORIDE 0.9% 250 ML IVPB SCH ×2 (08:24→22:49)
[2017-03-28] MEDS: CEFTRIAXONE 1 GM/50 ML (PMX) 50 ML IVPB SCH (12:18)
[2017-03-28] MEDS: SODIUM HYPOCHLORITE 0.125% 473 ML BTL IRR SCH (12:26)
[2017-03-28 14:00] VITALS: BP 135/78; RESP 18
--- NOTE | 2017-03-28 17:27 | PN ---
Date/Time of Note Date/Time of Note DATE: 03/28/17 TIME: 17:26 Assessment/Plan VTE Prophylaxis VTE Prophylaxis Intervention: other Lines/Catheters IV Catheter Type (from Nrsg): Peripheral IV Urinary Cath still in place: No Assessment/Plan Chief Complaint/Hosp Course IMPRESSION: 1. The patient has buttock wound. 2. Hypertension, 3. 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 Problems: Subjective 24 Hr Interval Summary Respiratory: no complaints Cardiovascular: no complaints Exam/Review of Systems Vital Signs Vitals Vital Signs Date Time Temp Pulse Resp B/P Pulse Ox O2 Delivery O2 Flow Rate FiO2 03/28/17 14:00 98.2 70 18 135/78 98 03/25/17 22:36 Room Air Intake and Output 03/27/17 03/27/17 03/28/17 15:00 23:00 07:00 Intake Total 300 ml 1700 ml 1500 ml Balance 300 ml 1700 ml 1500 ml Exam Neck: supple Respiratory: clear to auscultation Cardiovascular: regular rate and rhythm Gastrointestinal: soft Extremities: edema Skin: other (BUTTOCK WOUND+) Results Result Diagram: 03/25/17 1140 03/27/17 0503 Results 24 hrs Laboratory Tests Test 03/27/17 17:31 03/27/17 19:35 03/27/17 20:36 03/28/17 08:15 Bedside Glucose 114 93 101 Vancomycin Level Trough 11.6 Test 03/28/17 12:14 03/28/17 17:17 Bedside Glucose 123 108 Medications Medications Current Medications Sodium Chloride (NS) 1,000 ml @ 40 mls/hr Q24H IV Last administered on 05:07; Admin Dose 40 MLS/HR; Start 03/25/17 at 17:07 Ondansetron HCl (Zofran Inj) 4 mg Q6H PRN IV NAUSEA AND/OR VOMITING; Start 04/01 at 17:30 Acetaminophen (Tylenol Tab) 650 mg Q6H PRN PO PAIN LEVEL 1-3 OR FEVER; Start 03/25/17 at 17:30 Acetaminophen/ Hydrocodone Bitart ([place] (5/325)) 1 tab Q6H PRN PO MODERATE PAIN LEVEL 4-6 Last administered on 03/27/17 20:43; Admin Dose 1 TAB; Start 03/25/17 at 17:30 Docusate Sodium (Colace) 100 mg Q12H PRN PO CONSTIPATION; Start 03/25/17 at 17 :30 Magnesium Hydroxide (Milk Of Mag) 30 ml DAILY PRN PO CONSTIPATION; Start 03/25 at 17:30 Bisacodyl (Dulcolax) 5 mg DAILY PRN PO CONSTIPATION; Start 03/25/17 at 17:30 Pantoprazole (Protonix Tab) 40 mg DAILY@06 PO Last administered on 03/28/17 05:06; Admin Dose 40 MG; Start 03/26/17 at 06:00 Enoxaparin Sodium 40 mg 40 mg DAILY SC Last administered on 03/28/17 08:22; Admin Dose 40 MG; Start 03/26/17 at 09:00 Ceftriaxone Sodium (Rocephin) 50 ml @ 100 mls/hr DAILY IVPB Last administered on 03/28/17 12:18; Admin Dose 100 MLS/HR; Start 03/26/17 at 09:00 Clonidine (Catapres) 0.1 mg TID PO Last administered on 03/28/17 15:28; Admin Dose 0.1 MG; Start 03/25/17 at 21:00 Hydralazine HCl (Apresoline) 10 mg Q6H PRN IV SBP ABOVE 170; Start 03/25/17 at 18:00 Miscellaneous Information (Pending [facility] Order For Wound Care) This patient lópez... PRN PRN XX WOUND CARE; Start 03/26/17 at 04:00 Morphine Sulfate 2 mg 2 mg Q4H PRN IV pain Last administered on 03/28/17 12: 18; Admin Dose 2 MG; Start 03/26/17 at 12:30 Vancomycin HCl/ Sodium Chloride (Vancocin/NS) 250 ml @ 83.333 mls/ hr Q12H IVPB Last administered on 03/28/17 08:24; Admin Dose 83.333 MLS/HR; Start at 20:00 Diagnostic Test (Pha) (Accu-Chek) 1 ea 02 XX ; Start 03/27/17 at 02:00 Miscellaneous Information 1 ea NOTE XX ; Start 03/26/17 at 21:30 Glucose (Glutose) 15 gm Q15M PRN PO DECREASED GLUCOSE; Start 03/26/17 at 21:30 Glucose (Glutose) 22.5 gm Q15M PRN PO DECREASED GLUCOSE; Start 03/26/17 at 21: 30 Dextrose (D50w Syringe) 25 ml Q15M PRN IV DECREASED GLUCOSE; Start 03/26/17 at 21:30 Dextrose (D50w Syringe) 50 ml Q15M PRN IV DECREASED GLUCOSE; Start 03/26/17 at 21:30 Glucagon (Glucagen) 1 mg Q15M PRN IM DECREASED GLUCOSE; Start 03/26/17 at 21: 30 Glucose (Glutose) 15 gm Q15M PRN BUCCAL DECREASED GLUCOSE; Start 03/26/17 at 21:30 Sodium Hypochlorite (Dakin'S (1/4 Strength)) 1 applic DAILY IRR Last administered on 03/28/17t 12:26; Admin Dose 1 APPLIC; Start 03/28/17 at 09:00 KAL HENDRIX MD Mar 28, 2017 17:27
[2017-03-28 20:00] VITALS: BP 127/67; RESP 20
--- NOTE | 2017-03-28 20:26 | PN ---
Date/Time of Note Date/Time of Note DATE: 03/28/17 TIME: 20:26 Assessment/Plan Lines/Catheters IV Catheter Type (from [facility]): Peripheral IV [place] in Place (from [facility]): No Assessment/Plan Chief Complaint/Hosp Course 1. Nonhealing right buttock wound with necrotic tissue: complicated by diabetes : CT without fluid collection: s/p debridement -debridement prn -local wound care -follow wound culture -patient may be discharged per medical team with wound care for home- follow in wound care clinic 2. Diabetes: HgA1c: 6.7 -blood sugar optimization -medication and diet optimization -weight management 3. Morbid obesity -diet and exercise optimization 4. Hypertension -medical optimization Thank you. Patient seen and examined in collaboration with Dr. Alexx Shea. Problems: Subjective 24 Hr Interval Summary Wound mod drainage. Min pain/tenderness-improved with medications. No fevers, chills, excessive wound drainage/odor, n/v/d/dysuria. + bowel function. Exam/Review of Systems Vital Signs Vitals Vital Signs Date Time Temp Pulse Resp B/P Pulse Ox O2 Delivery O2 Flow Rate FiO2 03/29/17 14:18 98.0 77 19 126/77 95 03/29/17 08:16 Room Air Intake and Output 03/29/17 03/29/17 03/30/17 15:00 23:00 07:00 Intake Total 300 ml 1080 ml Balance 300 ml 1080 ml Exam Free Text/Dictation Constitutional: alert, oriented Psych: nl mood/affect, no complaints Head: atraumatic, normocephalic Eyes: nl conjunctiva, nl lids, nl sclera ENMT: mucosa pink and moist, nl nasal mucosa & septum Neck: non-tender, supple Respiratory: clear to auscultation, normal air movement Cardiovascular: nl pulses, regular rate and rhythm Gastrointestinal: bowel sounds, non-tender, soft Musculoskeletal: nl extremities to inspection, nl gait and stance Extremities: normal pulses Neurological: nl mental status, nl speech, nl strength Skin: other (Right buttock: packed, mod drainage, nonmalodorous) Results Result Diagram: 03/29/17 1748 03/29/17 174 MICHAEL POTTS NP Mar 28, 2017 20:26
[2017-03-28] MEDS: FLUCONAZOLE 200 MG/NS (PMX) 100 ML IVPB SCH (21:17)
[2017-03-29 02:00] VITALS: BP 123/82; RESP 20
[2017-03-29] MEDS: ACCU-CHEK XX SCH (02:00)
[2017-03-29] MEDS: PANTOPRAZOLE (EC) 40 MG TAB PO SCH (06:18)
[2017-03-29 07:02] LABS: CREATININE 0.88 mg/dl (0.61-1.24)
[2017-03-29] MEDS: INSULIN ASPART [NOVOLOG] 3 ML PEN SC SCH ×4 (08:00→20:26)
[2017-03-29] MEDS: CEFTRIAXONE 1 GM/50 ML (PMX) 50 ML IVPB SCH (08:02)
[2017-03-29] MEDS: SODIUM HYPOCHLORITE 0.125% 473 ML BTL IRR SCH (08:04)
[2017-03-29] MEDS: metFORMIN 500 MG TAB PO SCH ×2 (08:04→17:19)
[2017-03-29] MEDS: ENOXAPARIN 40 MG/0.4 ML SYG SC SCH (08:09)
[2017-03-29 08:16] VITALS: BP 126/67; PULSE 78; RESP 16
[2017-03-29] MEDS: VANCOMYCIN 1.25 GM in SOD CHLORIDE 0.9% 250 ML IVPB SCH ×2 (08:51→20:11)
[2017-03-29] MEDS: morphine 2 MG INJ IV PRN ×2 (10:22→21:04)
[2017-03-29 14:18] VITALS: BP 126/77; RESP 19
--- NOTE | 2017-03-29 15:30 | PN ---
Date/Time of Note Date/Time of Note DATE: 03/29/17 TIME: 15:29 Assessment/Plan VTE Prophylaxis VTE Prophylaxis Intervention: other Lines/Catheters IV Catheter Type (from Nrsg): Peripheral IV Urinary Cath still in place: No Assessment/Plan Chief Complaint/Hosp Course IMPRESSION: 1. The patient has buttock wound.BETTER 2. Hypertension, 3. 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 Problems: Subjective 24 Hr Interval Summary Cardiovascular: no complaints Gastrointestinal: no complaints Exam/Review of Systems Vital Signs Vitals Vital Signs Date Time Temp Pulse Resp B/P Pulse Ox O2 Delivery O2 Flow Rate FiO2 03/29/17 14:18 98.0 77 19 126/77 95 03/29/17 08:16 Room Air Intake and Output 03/28/17 03/28/17 03/29/17 15:00 23:00 07:00 Intake Total 300 ml 1100 ml 830 ml Output Total 600 ml Balance 300 ml 1100 ml 230 ml Exam Respiratory: clear to auscultation Cardiovascular: regular rate and rhythm Gastrointestinal: soft Musculoskeletal: nl extremities to inspection Extremities: normal pulses Results Result Diagram: 03/25/17 1140 03/29/17 0545 Results 24 hrs Laboratory Tests Test 03/28/17 17:17 03/28/17 21:09 03/29/17 05:45 03/29/17 08:03 Bedside Glucose 108 87 100 Blood Urea Nitrogen 15 Creatinine 0.88 Test 03/29/17 11:59 Bedside Glucose 96 Medications Medications Current Medications Sodium Chloride (NS) 1,000 ml @ 40 mls/hr Q24H IV Last administered on 05:07; Admin Dose 40 MLS/HR; Start 03/25/17 at 17:07 Ondansetron HCl (Zofran Inj) 4 mg Q6H PRN IV NAUSEA AND/OR VOMITING; Start 04/01 at 17:30 Acetaminophen (Tylenol Tab) 650 mg Q6H PRN PO PAIN LEVEL 1-3 OR FEVER; Start 03/25/17 at 17:30 Acetaminophen/ Hydrocodone Bitart ([place] (5/325)) 1 tab Q6H PRN PO MODERATE PAIN LEVEL 4-6 Last administered on 03/27/17 20:43; Admin Dose 1 TAB; Start 03/25/17 at 17:30 Docusate Sodium (Colace) 100 mg Q12H PRN PO CONSTIPATION; Start 03/25/17 at 17 :30 Magnesium Hydroxide (Milk Of Mag) 30 ml DAILY PRN PO CONSTIPATION; Start 03/25 at 17:30 Bisacodyl (Dulcolax) 5 mg DAILY PRN PO CONSTIPATION; Start 03/25/17 at 17:30 Pantoprazole (Protonix Tab) 40 mg DAILY@06 PO Last administered on 03/29/17 06:18; Admin Dose 40 MG; Start 03/26/17 at 06:00 Enoxaparin Sodium 40 mg 40 mg DAILY SC Last administered on 03/29/17 08:09; Admin Dose 40 MG; Start 03/26/17 at 09:00 Ceftriaxone Sodium (Rocephin) 50 ml @ 100 mls/hr DAILY IVPB Last administered on 03/29/17 08:02; Admin Dose 100 MLS/HR; Start 03/26/17 at 09:00 Clonidine (Catapres) 0.1 mg TID PO Last administered on 03/29/17 12:02; Admin Dose 0.1 MG; Start 03/25/17 at 21:00 Hydralazine HCl (Apresoline) 10 mg Q6H PRN IV SBP ABOVE 170; Start 03/25/17 at 18:00 Miscellaneous Information (Pending [facility] Order For Wound Care) This patient lópez... PRN PRN XX WOUND CARE; Start 03/26/17 at 04:00 Morphine Sulfate 2 mg 2 mg Q4H PRN IV pain Last administered on 03/29/17 10: 22; Admin Dose 2 MG; Start 03/26/17 at 12:30 Vancomycin HCl/ Sodium Chloride (Vancocin/NS) 250 ml @ 83.333 mls/ hr Q12H IVPB Last administered on 03/29/17 08:51; Admin Dose 83.333 MLS/HR; Start at 20:00 Diagnostic Test (Pha) (Accu-Chek) 1 ea 02 XX ; Start 03/27/17 at 02:00 Miscellaneous Information 1 ea NOTE XX ; Start 03/26/17 at 21:30 Glucose (Glutose) 15 gm Q15M PRN PO DECREASED GLUCOSE; Start 03/26/17 at 21:30 Glucose (Glutose) 22.5 gm Q15M PRN PO DECREASED GLUCOSE; Start 03/26/17 at 21: 30 Dextrose (D50w Syringe) 25 ml Q15M PRN IV DECREASED GLUCOSE; Start 03/26/17 at 21:30 Dextrose (D50w Syringe) 50 ml Q15M PRN IV DECREASED GLUCOSE; Start 03/26/17 at 21:30 Glucagon (Glucagen) 1 mg Q15M PRN IM DECREASED GLUCOSE; Start 03/26/17 at 21: 30 Glucose (Glutose) 15 gm Q15M PRN BUCCAL DECREASED GLUCOSE; Start 03/26/17 at 21:30 Sodium Hypochlorite 1 applic 1 applic DAILY IRR Last administered on 08:04; Admin Dose 1 APPLIC; Start 03/28/17 at 09:00 Fluconazole (Diflucan 200 Mg/ NS (Pmx)) 100 ml @ 100 mls/hr Q24H IVPB Last administered on 03/28/17 21:17; Admin Dose 100 MLS/HR; Start 03/28/17 at 19: 00 KAL HENDRIX MD Mar 29, 2017 15:30
[2017-03-29] MEDS: SOD CHLORIDE 0.9% 1,000 ML IV SCH (17:07)
--- NOTE | 2017-03-29 17:10 | PN ---
Date/Time of Note Date/Time of Note DATE: 03/29/17 TIME: 17:04 Assessment/Plan Lines/Catheters IV Catheter Type (from [facility]): Peripheral IV [place] in Place (from [facility]): No Assessment/Plan Chief Complaint/Hosp Course 1. Nonhealing right buttock wound with necrotic tissue: complicated by diabetes : CT without fluid collection: s/p debridement -debridement prn -local wound care -off loading -nutrition optimization (high protein) -vit c, 1000mg/day -patient may be discharged per medical team with wound care for home > f/u in wound care clinic 2. Diabetes -medication and diet optimization -encourage weight loss 3. Morbid obesity -diet and exercise optimization 4. Hypertension -diet and medication optimization -encourage weight loss Thank you, Problems: Subjective 24 Hr Interval Summary Min pain. Wound mod drainage. No fevers, chills, odor, n/v/d/dysuria, change in bowel pattern or ability to defecate. No lópez/visual or neuro changes. Exam/Review of Systems Vital Signs Vitals Vital Signs Date Time Temp Pulse Resp B/P Pulse Ox O2 Delivery O2 Flow Rate FiO2 03/29/17 14:18 98.0 77 19 126/77 95 03/29/17 08:16 Room Air Intake and Output 03/28/17 03/28/17 03/29/17 15:00 23:00 07:00 Intake Total 300 ml 1100 ml 830 ml Output Total 600 ml Balance 300 ml 1100 ml 230 ml Exam Free Text/Dictation Constitutional: alert, oriented Psych: nl mood/affect, no complaints Head: atraumatic, normocephalic Eyes: nl conjunctiva, nl lids, nl sclera ENMT: mucosa pink and moist, nl nasal mucosa & septum Neck: non-tender, supple Respiratory: clear to auscultation, normal air movement Cardiovascular: nl pulses, regular rate and rhythm Gastrointestinal: bowel sounds, non-tender, soft Musculoskeletal: nl extremities to inspection, nl gait and stance Extremities: normal pulses Neurological: nl mental status, nl speech, nl strength Skin: Right buttock: packed, mod drainage, nonmalodorous. Min tender Results Result Diagram: 03/25/17 1140 03/29/17 0545 TANI TAPIA MD Mar 29, 2017 17:10
[2017-03-29 17:57] LABS: BASOPHILS % 0.6 % (0.0-2.0); EOSINOPHILS # 0.4 10^3/ul (0.0-0.5); EOSINOPHILS % 5.6 % (0.0-7.0); HEMATOCRIT 44.9 % (42.0-52.0); HEMOGLOBIN 15.4 g/dl (14.0-18.0); LYMPHOCYTES # 0.7 10^3/ul (0.8-2.9); LYMPHOCYTES % 11.4 % (15.0-51.0); MEAN CORPUSCULAR HEMOGLOBIN 29.8 pg (29.0-33.0); MEAN CORPUSCULAR HGB CONC 34.3 g/dl (32.0-37.0); MEAN PLATELET VOLUME 8.5 fl (7.4-10.4); MONOCYTE # 0.5 10^3/ul (0.3-0.9); MONOCYTES % 7.4 % (0.0-11.0); NEUTROPHIL # 4.9 10^3/ul (1.6-7.5); NEUTROPHILS % 74.8 % (39.0-77.0); PLATELET COUNT 260 10^3/UL (140-415); RED BLOOD COUNT 5.16 10^6/ul (4.70-6.10); RED CELL DISTRIBUTION WIDTH 12.2 % (11.5-14.5); WHITE BLOOD COUNT 6.5 10^3/ul (4.8-10.8)
[2017-03-29 18:15] LABS: CALCIUM 9.3 mg/dl (8.4-10.2); CREATININE 0.95 mg/dl (0.61-1.24); POTASSIUM 3.9 mmol/L (3.5-5.1)
[2017-03-29] MEDS: FLUCONAZOLE 200 MG/NS (PMX) 100 ML IVPB SCH (18:34)
[2017-03-29 20:00] VITALS: BP 112/70; RESP 18
[2017-03-30 02:00] VITALS: BP 146/87; RESP 17
[2017-03-30] MEDS: ACCU-CHEK XX SCH (02:00)
[2017-03-30] MEDS: PANTOPRAZOLE (EC) 40 MG TAB PO SCH (05:54)
[2017-03-30] MEDS: INSULIN ASPART [NOVOLOG] 3 ML PEN SC SCH ×4 (08:00→21:00)
[2017-03-30] MEDS: ENOXAPARIN 40 MG/0.4 ML SYG SC SCH (08:11)
[2017-03-30] MEDS: metFORMIN 500 MG TAB PO SCH ×2 (08:11→17:40)
[2017-03-30] MEDS: CEFTRIAXONE 1 GM/50 ML (PMX) 50 ML IVPB SCH (08:12)
[2017-03-30 08:14] VITALS: BP 156/92; RESP 19
[2017-03-30] MEDS: VANCOMYCIN 1.25 GM in SOD CHLORIDE 0.9% 250 ML IVPB SCH ×2 (09:07→20:39)
[2017-03-30] MEDS: SODIUM HYPOCHLORITE 0.125% 473 ML BTL IRR SCH (09:08)
[2017-03-30 12:06] VITALS: BP 128/77; PULSE 79
[2017-03-30 14:38] VITALS: BP 135/75; RESP 18
[2017-03-30] MEDS: SOD CHLORIDE 0.9% 1,000 ML IV SCH (17:43)
[2017-03-30] MEDS: FLUCONAZOLE 200 MG/NS (PMX) 100 ML IVPB SCH (18:35)
--- NOTE | 2017-03-30 19:13 | PN ---
Date/Time of Note Date/Time of Note DATE: 03/30/17 TIME: 19:11 Assessment/Plan VTE Prophylaxis VTE Prophylaxis Intervention: other Lines/Catheters IV Catheter Type (from Nrsg): Peripheral IV Urinary Cath still in place: No Assessment/Plan Chief Complaint/Hosp Course IMPRESSION: 1. The patient has buttock wound.BETTER 2. Hypertension, 3. 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 ARRANGE FOR HOME HEALTH Problems: Subjective 24 Hr Interval Summary Cardiovascular: no complaints Gastrointestinal: no complaints Skin: skin lesions (+) Exam/Review of Systems Vital Signs Vitals Vital Signs Date Time Temp Pulse Resp B/P Pulse Ox O2 Delivery O2 Flow Rate FiO2 03/30/17 14:38 97.4 87 18 135/75 96 03/29/17 08:16 Room Air Intake and Output 03/29/17 03/29/17 03/30/17 15:00 23:00 07:00 Intake Total 300 ml 1180 ml 550 ml Balance 300 ml 1180 ml 550 ml Exam Neck: supple Respiratory: clear to auscultation Cardiovascular: regular rate and rhythm Gastrointestinal: soft Musculoskeletal: nl extremities to inspection Extremities: normal pulses Skin: other (WOUND+) Results Result Diagram: 03/29/17 1748 03/29/17 1748 Results 24 hrs Laboratory Tests Test 03/29/17 20:24 03/30/17 08:10 03/30/17 12:01 03/30/17 17:25 Bedside Glucose 93 106 101 102 Medications Medications Current Medications Sodium Chloride (NS) 1,000 ml @ 40 mls/hr Q24H IV Last administered on 17:43; Admin Dose 40 MLS/HR; Start 03/25/17 at 17:07 Ondansetron HCl (Zofran Inj) 4 mg Q6H PRN IV NAUSEA AND/OR VOMITING; Start 04/01 at 17:30 Acetaminophen (Tylenol Tab) 650 mg Q6H PRN PO PAIN LEVEL 1-3 OR FEVER; Start 03/25/17 at 17:30 Acetaminophen/ Hydrocodone Bitart ([place] (5/325)) 1 tab Q6H PRN PO MODERATE PAIN LEVEL 4-6 Last administered on 03/27/17 20:43; Admin Dose 1 TAB; Start 03/25/17 at 17:30 Docusate Sodium (Colace) 100 mg Q12H PRN PO CONSTIPATION; Start 03/25/17 at 17 :30 Magnesium Hydroxide (Milk Of Mag) 30 ml DAILY PRN PO CONSTIPATION; Start 03/25 at 17:30 Bisacodyl (Dulcolax) 5 mg DAILY PRN PO CONSTIPATION; Start 03/25/17 at 17:30 Pantoprazole (Protonix Tab) 40 mg DAILY@06 PO Last administered on 03/30/17 05:54; Admin Dose 40 MG; Start 03/26/17 at 06:00 Enoxaparin Sodium 40 mg 40 mg DAILY SC Last administered on 03/30/17 08:11; Admin Dose 40 MG; Start 03/26/17 at 09:00 Ceftriaxone Sodium (Rocephin) 50 ml @ 100 mls/hr DAILY IVPB Last administered on 03/30/17 08:12; Admin Dose 100 MLS/HR; Start 03/26/17 at 09:00 Clonidine (Catapres) 0.1 mg TID PO Last administered on 03/30/17 12:04; Admin Dose 0.1 MG; Start 03/25/17 at 21:00 Hydralazine HCl (Apresoline) 10 mg Q6H PRN IV SBP ABOVE 170; Start 03/25/17 at 18:00 Miscellaneous Information (Pending [facility] Order For Wound Care) This patient lópez... PRN PRN XX WOUND CARE; Start 03/26/17 at 04:00 Morphine Sulfate 2 mg 2 mg Q4H PRN IV pain Last administered on 03/29/17 21: 04; Admin Dose 2 MG; Start 03/26/17 at 12:30 Vancomycin HCl/ Sodium Chloride (Vancocin/NS) 250 ml @ 83.333 mls/ hr Q12H IVPB Last administered on 03/30/17 09:07; Admin Dose 83.333 MLS/HR; Start at 20:00 Diagnostic Test (Pha) (Accu-Chek) 1 ea 02 XX ; Start 03/27/17 at 02:00 Miscellaneous Information 1 ea NOTE XX ; Start 03/26/17 at 21:30 Glucose (Glutose) 15 gm Q15M PRN PO DECREASED GLUCOSE; Start 03/26/17 at 21:30 Glucose (Glutose) 22.5 gm Q15M PRN PO DECREASED GLUCOSE; Start 03/26/17 at 21: 30 Dextrose (D50w Syringe) 25 ml Q15M PRN IV DECREASED GLUCOSE; Start 03/26/17 at 21:30 Dextrose (D50w Syringe) 50 ml Q15M PRN IV DECREASED GLUCOSE; Start 03/26/17 at 21:30 Glucagon (Glucagen) 1 mg Q15M PRN IM DECREASED GLUCOSE; Start 03/26/17 at 21: 30 Glucose (Glutose) 15 gm Q15M PRN BUCCAL DECREASED GLUCOSE; Start 03/26/17 at 21:30 Sodium Hypochlorite 1 applic 1 applic DAILY IRR Last administered on 09:08; Admin Dose 1 APPLIC; Start 03/28/17 at 09:00 Fluconazole (Diflucan 200 Mg/ NS (Pmx)) 100 ml @ 100 mls/hr Q24H IVPB Last administered on 03/30/17 18:35; Admin Dose 100 MLS/HR; Start 03/28/17 at 19: 00 Vitamin A/Vitamin D (Vitamin A & D Oint) 1 applic BID TOP ; Start 03/30/17 at 21:00 KAL HENDRIX MD Mar 30, 2017 19:13
[2017-03-30] MEDS: VITAMIN A & D 5 GM OINT PACKET TOP SCH (20:41)
[2017-03-30 20:48] VITALS: BP 131/64; RESP 18
--- NOTE | 2017-03-30 23:57 | PN ---
Date/Time of Note Date/Time of Note DATE: 03/30/17 TIME: 23:57 Assessment/Plan Lines/Catheters IV Catheter Type (from [facility]): Peripheral IV [place] in Place (from [facility]): No Assessment/Plan Chief Complaint/Hosp Course 1. Nonhealing right buttock wound with necrotic tissue: complicated by diabetes : CT without fluid collection: s/p debridement -debridement prn -local wound care -off loading -nutrition optimization (high protein) -vit c, 1000mg/day -patient may be discharged per medical team with wound care for home > f/u in wound care clinic 2. Diabetes -medication and diet optimization -encourage weight loss 3. Morbid obesity -diet and exercise optimization 4. Hypertension -diet and medication optimization -encourage weight loss Thank you, Problems: Subjective 24 Hr Interval Summary Min pain. Wound mod drainage. No fevers, chills, odor, n/v/d/dysuria, change in bowel pattern or ability to defecate. No lópez/visual or neuro changes. Exam/Review of Systems Vital Signs Vitals Vital Signs Date Time Temp Pulse Resp B/P Pulse Ox O2 Delivery O2 Flow Rate FiO2 03/30/17 20:48 98.0 80 18 131/64 95 03/29/17 08:16 Room Air Intake and Output 03/29/17 03/29/17 03/30/17 15:00 23:00 07:00 Intake Total 300 ml 1180 ml 550 ml Balance 300 ml 1180 ml 550 ml Exam Free Text/Dictation Constitutional: alert, oriented Psych: nl mood/affect, no complaints Head: atraumatic, normocephalic Eyes: nl conjunctiva, nl lids, nl sclera ENMT: mucosa pink and moist, nl nasal mucosa & septum Neck: non-tender, supple Respiratory: clear to auscultation, normal air movement Cardiovascular: nl pulses, regular rate and rhythm Gastrointestinal: bowel sounds, non-tender, soft Musculoskeletal: nl extremities to inspection, nl gait and stance Extremities: normal pulses Neurological: nl mental status, nl speech, nl strength Skin: Right buttock: packed, mod drainage, nonmalodorous. Min tender Results Result Diagram: 03/29/17 1748 03/29/17 1748 TANI TAPIA MD Mar 30, 2017 23:57
[2017-03-31] MEDS: ACCU-CHEK XX SCH (02:00)
[2017-03-31 02:53] VITALS: BP 115/68; RESP 18
[2017-03-31] MEDS: PANTOPRAZOLE (EC) 40 MG TAB PO SCH (05:39)
[2017-03-31 06:10] LABS: CREATININE 0.93 mg/dl (0.61-1.24)
[2017-03-31] MEDS ORDERED: POTASSIUM CHLORIDE (SR) 20 MEQ TAB PO STA (06:32)
[2017-03-31] MEDS ORDERED: SOD CHLORIDE 0.9% IV ONE (07:00)
[2017-03-31] MEDS ORDERED: MAGNESIUM SULFATE IV ONE (07:00)
[2017-03-31 07:33] VITALS: BP 110/72; RESP 20
[2017-03-31] MEDS: INSULIN ASPART [NOVOLOG] 3 ML PEN SC SCH ×4 (08:00→21:00)
[2017-03-31] MEDS: metFORMIN 500 MG TAB PO SCH ×2 (08:23→17:59)
[2017-03-31] MEDS: VITAMIN A & D 5 GM OINT PACKET TOP SCH ×2 (08:25→22:11)
[2017-03-31] MEDS: CEFTRIAXONE 1 GM/50 ML (PMX) 50 ML IVPB SCH (08:25)
[2017-03-31] MEDS: SODIUM HYPOCHLORITE 0.125% 473 ML BTL IRR SCH (08:25)
[2017-03-31] MEDS: ENOXAPARIN 40 MG/0.4 ML SYG SC SCH (08:29)
[2017-03-31] MEDS: VANCOMYCIN 1.25 GM in SOD CHLORIDE 0.9% 250 ML IVPB SCH (09:39)
[2017-03-31 13:27] VITALS: BP 134/78; PULSE 87
[2017-03-31 14:46] VITALS: BP 153/95; RESP 20
--- NOTE | 2017-03-31 16:01 | PN ---
Date/Time of Note Date/Time of Note DATE: 03/31/17 TIME: 15:50 Assessment/Plan Lines/Catheters IV [facility] Type (from [facility] Peripheral IV [place] in Place (from [facility]): No Assessment/Plan Chief Complaint/Hosp Course 1. Nonhealing right buttock wound with necrotic tissue: complicated by diabetes : CT without fluid collection: s/p debridement; culture noted-started on fluconazole -debridement prn -local wound care -off loading -nutrition optimization (high protein) -vit c, 1000mg/day -patient may be discharged per medical team with wound care for home > f/u in wound care clinic 2. Diabetes -medication and diet optimization -encourage weight loss 3. Morbid obesity -diet and exercise optimization 4. Hypertension -diet and medication optimization -encourage weight loss Thank you. Patient seen and examined in collaboration with Dr. Alexx Shea. Problems: Subjective 24 Hr Interval Summary Feels well. Buttock wound improved pain. No fevers, chills, sob, congested cough , n/v/d/dysuria, lópez, dizziness, cp, palpitations. Antifungals on board. Exam/Review of Systems Vital Signs Vitals Vital Signs Date Time Temp Pulse Resp B/P Pulse Ox O2 Delivery O2 Flow Rate FiO2 03/31/17 14:46 98.0 89 20 153/95 96 03/29/17 08:16 Room Air Intake and Output 03/30/17 03/30/17 03/31/17 15:00 23:00 07:00 Intake Total 800 ml 1346.66 ml 863.33 ml Output Total 1250 ml Balance 800 ml 96.66 ml 863.33 ml Exam Free Text/Dictation Constitutional: alert, oriented Psych: nl mood/affect, no complaints Head: atraumatic, normocephalic Eyes: nl conjunctiva, nl lids, nl sclera ENMT: mucosa pink and moist, nl nasal mucosa & septum Neck: non-tender, supple Respiratory: clear to auscultation, normal air movement Cardiovascular: nl pulses, regular rate and rhythm Gastrointestinal: bowel sounds, non-tender, soft Musculoskeletal: nl extremities to inspection, nl gait and stance Extremities: normal pulses Neurological: nl mental status, nl speech, nl strength Skin: Right buttock: pink woundbed, min drainage, nonmalodorous. Min tender Results Result Diagram: 03/29/17 8668 03/31/17 0523 MICHAEL POTTS NP Mar 31, 2017 16:00
[2017-03-31] MEDS: HYDROCODONE/APAP (5/325) TAB PO PRN (16:52)
--- NOTE | 2017-03-31 17:00 | PN ---
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: s/p debridement; culture noted-started on fluconazole # DM with HBA1C 6.7 # Morbid obesity # Hypertension Recs - c/w iv fluconazole - Home health arrangement - Pain control - DM teaching - c/.w Metfomin Problems: Subjective 24 Hr Interval Summary Free Text/Dictation Cx+ Stephania Exam/Review of Systems Vital Signs Vitals Vital Signs Date Time Temp Pulse Resp B/P Pulse Ox O2 Delivery O2 Flow Rate FiO2 03/31/17 14:46 98.0 89 20 153/95 96 03/29/17 08:16 Room Air Intake and Output 03/30/17 03/30/17 03/31/17 15:00 23:00 07:00 Intake Total 800 ml 1346.66 ml 863.33 ml Output Total 1250 ml Balance 800 ml 96.66 ml 863.33 ml Exam Gen:Awake and alert Neck:supple CVS:Regular rate and rthym Abdomen:soft, non tender Rt buttock pink wound, minimal drainge, superficial Results Result Diagram: 03/29/17 1748 03/31/17 0523 Results 24 hrs Laboratory Tests Test 03/30/17 17:25 03/30/17 18:52 03/30/17 20:39 03/31/17 05:23 Bedside Glucose 102 91 Vancomycin Level Trough 13.1 Blood Urea Nitrogen 16 Creatinine 0.93 Test 03/31/17 08:24 03/31/17 12:26 Bedside Glucose 100 107 Medications Medications Current Medications Sodium Chloride (NS) 1,000 ml @ 40 mls/hr Q24H IV Last administered on t 17:43; Admin Dose 40 MLS/HR; Start 03/25/17 at 17:07 Ondansetron HCl (Zofran Inj) 4 mg Q6H PRN IV NAUSEA AND/OR VOMITING; Start 04/01 at 17:30 Acetaminophen (Tylenol Tab) 650 mg Q6H PRN PO PAIN LEVEL 1-3 OR FEVER; Start 03/25/17 at 17:30 Acetaminophen/ Hydrocodone Bitart ([place] (5/325)) 1 tab Q6H PRN PO MODERATE PAIN LEVEL 4-6 Last administered on 03/31/17 16:52; Admin Dose 1 TAB; Start 03/25/17 at 17:30 Docusate Sodium (Colace) 100 mg Q12H PRN PO CONSTIPATION; Start 03/25/17 at 17 :30 Magnesium Hydroxide (Milk Of Mag) 30 ml DAILY PRN PO CONSTIPATION; Start 03/25 at 17:30 Bisacodyl (Dulcolax) 5 mg DAILY PRN PO CONSTIPATION; Start 03/25/17 at 17:30 Pantoprazole (Protonix Tab) 40 mg DAILY@06 PO Last administered on 03/31/17 05:39; Admin Dose 40 MG; Start 03/26/17 at 06:00 Enoxaparin Sodium 40 mg 40 mg DAILY SC Last administered on 03/31/17 08:29; Admin Dose 40 MG; Start 03/26/17 at 09:00 Ceftriaxone Sodium (Rocephin) 50 ml @ 100 mls/hr DAILY IVPB Last administered on 03/31/17 08:25; Admin Dose 100 MLS/HR; Start 03/26/17 at 09:00 Clonidine (Catapres) 0.1 mg TID PO Last administered on 03/31/17 13:30; Admin Dose 0.1 MG; Start 03/25/17 at 21:00 Hydralazine HCl (Apresoline) 10 mg Q6H PRN IV SBP ABOVE 170; Start 03/25/17 at 18:00 Miscellaneous Information (Pending Santyl Order For Wound Care) This patient lópez... PRN PRN XX WOUND CARE; Start 03/26/17 at 04:00 Morphine Sulfate 2 mg 2 mg Q4H PRN IV pain Last administered on 03/29/17 21: 04; Admin Dose 2 MG; Start 03/26/17 at 12:30 Vancomycin HCl/ Sodium Chloride (Vancocin/NS) 250 ml @ 83.333 mls/ hr Q12H IVPB Last administered on 03/31/17 09:39; Admin Dose 83.333 MLS/HR; Start at 20:00 Diagnostic Test (Pha) (Accu-Chek) 1 ea 02 XX ; Start 03/27/17 at 02:00 Miscellaneous Information 1 ea NOTE XX ; Start 03/26/17 at 21:30 Glucose (Glutose) 15 gm Q15M PRN PO DECREASED GLUCOSE; Start 03/26/17 at 21:30 Glucose (Glutose) 22.5 gm Q15M PRN PO DECREASED GLUCOSE; Start 03/26/17 at 21: 30 Dextrose (D50w Syringe) 25 ml Q15M PRN IV DECREASED GLUCOSE; Start 03/26/17 at 21:30 Dextrose (D50w Syringe) 50 ml Q15M PRN IV DECREASED GLUCOSE; Start 03/26/17 at 21:30 Glucagon (Glucagen) 1 mg Q15M PRN IM DECREASED GLUCOSE; Start 03/26/17 at 21: 30 Glucose (Glutose) 15 gm Q15M PRN BUCCAL DECREASED GLUCOSE; Start 03/26/17 at 21:30 Sodium Hypochlorite 1 applic 1 applic DAILY IRR Last administered on 08:25; Admin Dose 1 APPLIC; Start 03/28/17 at 09:00 Fluconazole (Diflucan 200 Mg/ NS (Pmx)) 100 ml @ 100 mls/hr Q24H IVPB Last administered on 03/30/17 18:35; Admin Dose 100 MLS/HR; Start 03/28/17 at 19: 00 Vitamin A/Vitamin D (Vitamin A & D Oint) 1 applic BID TOP Last administered on 03/31/17 08:25; Admin Dose 1 APPLIC; Start 03/30/17 at 21:00 YUDI KELLY MD Mar 31, 2017 17:00
[2017-03-31] MEDS: ASCORBIC ACID 500 MG TAB PO SCH (17:59)
[2017-03-31] MEDS: FLUCONAZOLE 200 MG/NS (PMX) 100 ML IVPB SCH (18:00)
[2017-03-31 20:51] VITALS: BP 150/76; RESP 20
[2017-04-01] MEDS: ACCU-CHEK XX SCH (01:35)
[2017-04-01 02:29] VITALS: BP 124/61; RESP 18
[2017-04-01] MEDS: PANTOPRAZOLE (EC) 40 MG TAB PO SCH (06:03)
[2017-04-01 07:50] VITALS: BP 119/80; RESP 16
[2017-04-01] MEDS: INSULIN ASPART [NOVOLOG] 3 ML PEN SC SCH (08:00)
[2017-04-01] MEDS: VITAMIN A & D 5 GM OINT PACKET TOP SCH (08:19)
[2017-04-01] MEDS: metFORMIN 500 MG TAB PO SCH (08:19)
[2017-04-01] MEDS: ASCORBIC ACID 500 MG TAB PO SCH (08:19)
[2017-04-01] MEDS: SODIUM HYPOCHLORITE 0.125% 473 ML BTL IRR SCH (08:21)
[2017-04-01] MEDS: ENOXAPARIN 40 MG/0.4 ML SYG SC SCH (08:25)
--- NOTE | 2017-04-01 09:13 | PDOCDIS ---
Discharge Instructions DIAGNOSIS Discharge Diagnosis Rt buttock wound s/p I and D DM CONDITION Patient Condition: Fair HOME CARE INSTRUCTIONS: Special Diet: 1800 silvano ACTIVITY: Activity Restrictions: Slowly Increase Activity FOLLOW UP/APPOINTMENTS Follow-up Plan F/U PCP in 1 week f/u Dr Shea in 2 weeks YUDI KELLY MD Apr 01, 2017 09:13
[2017-04-01] MEDS ORDERED: FLUC100T PO (09:15)
[2017-04-01] MEDS ORDERED: CLON0.1T14 PO (09:15)
[2017-04-01] MEDS ORDERED: METF500T PO (09:15)
--- NOTE | 2017-04-01 11:17 | DS ---
DATE OF ADMISSION: 03/25/2017 DATE OF DISCHARGE: 04/01/2017 HISTORY OF PRESENT ILLNESS AND HOSPITAL COURSE: This is a 51-year-old gentleman with a history of benny vázquez, denied presented complaining of a right buttocks wound which was not healing. The patient is a trash collector truck driver, also noted to have a nonhealing wound. The patient said he had been gaining weig ht. On admission, patient had a right buttock that was near the cleft was swollen, had redness had discharge, tender. White count was 6.0. Patient also had a CT of the pelvis that showed no evidenc e of drainable fluid collection. No osseous abnormality finding to suggest osteomyelitis. The paulette ent was started on broad spectrum IV antibiotics with vancomycin and Rocephin. HbA1c was also check ed which was 6.7. Patient was seen and started on metformin. The patient was seen by surgery consu ltation with Dr. Shea, had right buttock wound which was 5.4 x 3.7 cm, had an excisional debride ment of the right buttock wound performed on the . Postop, patient was doing much better. Woun d cultures were sent. Blood cultures were sent that were negative. Gram stain showed PMNs rare, no organism and were positive for yeast. Patient was started on Diflucan. The patient was also being seen by wound care and dressings managed by wound care. Patient has been afebrile and no white cou nt and patient is currently being discharged with home health care and wound care. FINAL DIAGNOSES: 1. Right buttock wound 5.4 x 3.4 cm, status post excisional debridement of the right buttock wound with the wound culture positive for yeast. 2. New onset diabetes, started on metformin. 3. Hypertension. 4. Obesity. DISCHARGE INSTRUCTIONS: The patient was instructed to follow up with PCP in 1 week. Follow up with Dr. Shea in 2 weeks. DISCHARGE MEDICATIONS: 1. Diflucan 100 mg p.o. daily for 10 more days. 2. Metformin 500 mg p.o. b.i.d. 3. Clonidine 0.1 mg p.o. t.i.d. FOLLOWUP: Patient was instructed to follow up with PCP in 1 week, Dr. Shea 2 weeks. Arrangement was made for home health care. Patient was instructed to return to the ER if he has worsening pain , fevers, chills. Dictated By: YUDI ESCOBEDO Conf#: [id number] DID#: [id number]
== END 2017-04-01 11:44 | disposition home health service (06) | DRG 605 ==
LOC: E/R 10:49 → PP2 15:11 → OBSVTOIN 15:47
PROVIDERS: ADMIT Internal Medicine Nephrology; ATTEND Internal Medicine Nephrology
PROC: 0HB8XZZ Excision of Buttock Skin, External Approach (ICD-10-PCS; principal; 2017-03-26)
DX: S31.819A Unspecified open wound of right buttock, initial encounter (principal); Z68.42 Body mass index [BMI] 45.0-49.9, adult; I10 Essential (primary) hypertension; E11.9 Type 2 diabetes mellitus without complications; B37.2 Candidiasis of skin and nail; E66.01 Morbid (severe) obesity due to excess calories
CPT/HCPCS: 36415; 72193; 80048; 80053; 80202; 82565; 82962; 83036; 84520; 85025; 87040; 87070; 96374; 96375; 96376; 99217; G0378; J0696; J1170; J1335; J1650; J1815; J2270; J2405; J3370; J7030; J7040; J7050; Q9967

== ENCOUNTER 2017-07-11 14:37 | Emergency (ER) | END 2017-07-11 18:17 | disposition home or self-care (01) ==